=== PATIENT | female | born 1975 | race Caucasian/White ===

== ENCOUNTER 2017-01-07 13:50 | Emergency (ER) | payer SELFPAY ==
--- NOTE | ~2017-01-07 | ER ---
PATIENT'S NAME: BUSHRA CHAND [facility] AGE: 41 Y [address] ROOM: [place] [id number] LOCATION: [facility] ADMIT DATE: 01/07/2017 ER/Outpatient Report DISCHARGE DATE: 01/07/2017 FAMILY PHYSICIAN: Pancho Genao MD ATTENDING PHYSICIAN: Vamsi Burk Time of Arrival: 1350 hours. Time of Evaluation: 1400 hours. CHIEF COMPLAINT: Nausea and vomiting. HISTORY OF PRESENT ILLNESS: This is a 41-year-old female, who presents to the ER, who states she has had nausea and vomiting. The patient states that she has not been feeling well for the past 3 days and she did miss 2 days of work and is needing a work note. She states she feels like she may be running a fever, but she has not checked it. She has had no diarrhea. No cough. No upper respiratory symptoms. The patient denies any other problems at this time. ALLERGIES: NO KNOWN ALLERGIES. MEDICATIONS: Please see medication list nurse's notes. PAST MEDICAL HISTORY: Anxiety and depression. PAST SURGERIES: Surgeries on her ovary and she has had x2. SOCIAL HISTORY: She does smoke 1 pack a day. Denies any drug or alcohol use. REVIEW OF SYSTEMS: A 10-point review of systems was completed, was negative with the exception of those discussed in the HPI. PHYSICAL EXAMINATION: VITAL SIGNS: Height 5 feet and 9 inches stated, weight 60.5 kg taken, blood pressure is 140/88, pulse 89, respirations 16, temperature 97.8 degrees tympanically, and saturations 98% on room air. [place] Coma Score is 15. GENERAL: Alert, calm, well-developed female, in no acute distress. She plays on her video game during examination and she has been drinking sips of pop out PATIENT'S NAME: BUSHRA CHAND [facility] AGE: 41 Y [address] ROOM: [place], [place] [address] LOCATION: [facility] ADMIT DATE: 01/07/2017 ER/Outpatient Report DISCHARGE DATE: 01/07/2017 FAMILY PHYSICIAN: Pancho Genao MD ATTENDING PHYSICIAN: Vamsi Burk of her [employer] cup prior to examination. HEENT: Head: Normocephalic. Eyes: Pupils are equal and reactive to light. She does display moist mucous membranes. LUNGS: Clear to auscultation bilaterally. No wheeze or crackles. Normal respiratory effort. HEART: Regular rate and rhythm. No lifts, thrills, or murmurs. ABDOMEN: Soft. It is mildly tender in the midepigastric region with palpation. She has good bowel sounds throughout. No masses were palpated. EXTREMITIES: No clubbing, cyanosis, or edema. She has full range of motion of all limbs. LABORATORY DATA AND X-RAYS: CBC: White count is 6.3, hemoglobin is 11.7, platelets 244, and ANC is 4.1. CMS: Anion gap is 9.9, otherwise unremarkable. Amylase 53. Lipase 233. H. pylori is negative. IMPRESSION: Nausea and vomiting. ASSESSMENT AND PLAN: We did give the patient an ODT Zofran while here. She had no emesis during her entire stay here. We will dismiss her to home with a prescription for Zofran to use as directed. She needs to do small amounts of fluids frequently, monitor symptoms, and follow up with her primary care physician if needed. The patient understands and agrees with care. ROBI LESTER PA-C FOR MD KINJAL RODRIGUEZ/andrew /[id number] d: 01/07/172026 t: 01/21/17811, OUTPATIENT REPORT
[2017-01-07 14:24] LABS: BASOPHIL % 0.5 %; EOSINOPHIL # 0.1 K/uL (0.0-0.5); HEMATOCRIT 37.4 % (33.0-46.0); HEMOGLOBIN 11.7 g/dL (10.0-15.0); IMMATURE GRANULOCYTE % 0.2 %; LYMPHOCYTE # 1.8 K/uL (0.8-4.0); LYMPHOCYTE % 28.3 %; MCH 27.9 pg (27.0-34.0); MCHC 31.3 gm/dL (32.0-36.5); MCV 89.3 fl (83.0-98.0); MONOCYTE # 0.3 K/uL (0.0-1.0); MONOCYTE % 5.1 %; MPV 9.8 fl (9.4-12.4); NEUTROPHIL # (ANC) 4.1 K/uL (1.8-7.8); NEUTROPHIL % 64.9 %; NRBC % 0 /100WBC (0-0.00); PLATELET COUNT 244 K/uL (150-450); RBC 4.19 M/uL (3.50-5.50); RDW-CV 13.5 % (11.9-14.6); WBC 6.3 K/uL (4.0-11.0)
[2017-01-07 14:45] LABS: ALBUMIN 3.9 gm/dL (3.5-5.0); ALK PHOS 69 IU/L (33-138); ALT 51 IU/L (12-78); ANION GAP 9.9 (10.0-19.0); AST 24 IU/L (10-40); BLOOD UREA NITROGEN 11 mg/dL (6-24); CALCIUM 8.8 mg/dL (8.5-10.5); CHLORIDE 108 mMol/L (96-110); CO2 26 mMol/L (22-32); CREATININE 0.7 mg/dL (0.5-1.1); ESTIMATED GFR (MDRD EQUATION) > 60; POTASSIUM 3.9 mMol/L (3.7-5.1); SODIUM 140 mMol/L (135-145); TOTAL BILIRUBIN 0.3 mg/dL (0.0-1.5); TOTAL PROTEIN 7.5 g/dL (6.0-8.4)
== END 2017-01-07 15:12 | disposition disaster alternative care site (69) ==
LOC: GMED 13:50
PROVIDERS: Physician Assistant Medical
DX: R11.2 Nausea with vomiting, unspecified (principal); F32.9 Major depressive disorder, single episode, unspecified; F41.9 Anxiety disorder, unspecified; F17.210 Nicotine dependence, cigarettes, uncomplicated; Z79.899 Other long term (current) drug therapy; Z98.890 Other specified postprocedural states

== ENCOUNTER 2017-03-18 06:55 | Emergency (ER) | payer SELFPAY ==
--- NOTE | ~2017-03-18 | ER ---
PATIENT'S NAME: BUSHRA CHAND [facility] AGE: 41 Y [address] ROOM: [place] [address] LOCATION: [facility] ADMIT DATE: 03/18/2017 ER/Outpatient Report DISCHARGE DATE: 03/18/2017 FAMILY PHYSICIAN: Jhonatan Rogers MD ATTENDING PHYSICIAN: Vamsi Burk CHIEF COMPLAINT: Left hip pain. HISTORY OF PRESENT ILLNESS: The patient states that she has had left hip pain for the last 36-48 hours. It is very painful with weightbearing but is better with lying down. No single position makes it better. Otherwise, she feels very uncomfortable. She denies any fevers or chills with this, but may have had a fever prior to the weekend. No other significant changes in health otherwise. A few weeks ago, she did have to start riding her bike a lot more for transport. No other acute issues at this time. She denies any significant recent injuries otherwise. PAST MEDICAL HISTORY: Documented on the record and reviewed by me. SOCIAL HISTORY: Documented on the record and reviewed by me. MEDICATIONS: Documented on the record and reviewed by me. ALLERGIES: DOCUMENTED ON THE RECORD AND REVIEWED BY ME. REVIEW OF SYSTEMS: All systems are reviewed and negative except as noted in the HPI. PHYSICAL EXAMINATION: VITAL SIGNS: Blood pressure 127/85, pulse is 94, respiratory rate is 20, temperature is 96.7, SpO2 is 98% on room air. Pain is rated at 9/10. GENERAL: Age-appropriate female. Right lateral decubitus position on the exam table in discomfort and no evidence of pain or distress otherwise. NEUROLOGIC: Awake and alert. GCS is 15. Strength in the left lower extremity is 5/5. No focal deficits. HEENT: Normocephalic, atraumatic. Eyes are PERRL. Oropharynx is clear. Teeth in poor repair. PATIENT'S NAME: BUSHRA CHAND [facility] AGE: 41 Y [address] ROOM: [place] [address] LOCATION: [facility] ADMIT DATE: 03/18/2017 ER/Outpatient Report DISCHARGE DATE: 03/18/2017 FAMILY PHYSICIAN: Jhonatan Rogers MD ATTENDING PHYSICIAN: Vamsi Burk NECK: Supple. Trachea is midline. CHEST: Heart is regular rate and rhythm. No murmurs. LUNGS: Clear to auscultation bilateral. No rhonchi, wheezes, or rales. ABDOMEN: Soft, nontender, and nondistended. No rebound or guarding. BACK: Normal to inspection and palpation. EXTREMITIES: The left hip is notable for tenderness from the ASIS along the iliac crest to the posterior aspect at the SI joint. There is no particular muscular tenderness. The left hip has good passive range of motion with no pain or stiffness appreciated. The extremities otherwise neurovascularly intact. The right lower extremity and upper extremities are unremarkable. SKIN: Warm, dry, intact. No rashes. LABS AND X-RAYS: None. IMPRESSION: Muscle strain. EMERGENCY DEPARTMENT COURSE: The patient was seen and evaluated as above. She was given a shot of morphine and some Zofran. Per her primary request, she was given a work note. She was also given a few [place] to help with the pain. All questions were answered. The patient was discharged with instructions to return if worse. MD CECIL RODRIGUEZ/nadrew /[id number] d: 03/18/17 1223 t: 03/19/17 1011, OUTPATIENT REPORT
== END 2017-03-18 07:35 | disposition disaster alternative care site (69) ==
LOC: GMED 06:55
DX: S76.012A Strain of muscle, fascia and tendon of left hip, initial encounter (principal); F41.9 Anxiety disorder, unspecified; F32.9 Major depressive disorder, single episode, unspecified; Z98.890 Other specified postprocedural states; F17.210 Nicotine dependence, cigarettes, uncomplicated; Z79.899 Other long term (current) drug therapy; X58.XXXA Exposure to other specified factors, initial encounter
CPT/HCPCS: J2270

== ENCOUNTER 2017-03-19 18:25 | Emergency (ER) | payer SELFPAY ==
--- NOTE | ~2017-03-19 | ER ---
PATIENT'S NAME: BUSHRA CHAND [facility] AGE: 41 Y [address] ROOM: [place] [address] LOCATION: [facility] ADMIT DATE: 03/19/2017 ER/Outpatient Report DISCHARGE DATE: 03/19/2017 FAMILY PHYSICIAN: PHYSICIAN, NO ATTENDING PHYSICIAN: David Fuller TIME SEEN: 1840 hours. CHIEF COMPLAINT: Right low back pain. HISTORY OF PRESENT ILLNESS: The patient is a 41-year-old female who was seen yesterday in the emergency room with right hip and low back pain. The patient was prescribed some [place] which she states has not given her any relief. The patient does admit to some family issues. She is in the process of moving and somewhat stressful situation she is currently in. ALLERGIES: NO MEDICINAL ALLERGIES. CURRENT MEDICATIONS: 1. Lorazepam. 2. She has taken some [place] today. MEDICAL HISTORY: Two previous C-sections, oophorectomy, history of anxiety, and depression. SOCIAL HISTORY: Smoker. Half pack a day. Denies alcohol or drug use. She works at [employer]. REVIEW OF SYSTEMS: GENERAL: No fevers or chills. Followed with back pain. HEAD AND EENT. History of poor dentition. RESPIRATORY: Negative. CARDIOVASCULAR: Negative. GASTROINTESTINAL: Denies any weight loss or change in bowel habits. GENITOURINARY: No burning or frequency of urination. MUSCULOSKELETAL: To involve right-sided back pain, worse with movement. NEURO: She denies any change in her bowel habits or urinary incontinence. Denies any numbness or tingling to her lower extremities. OBJECTIVE: PATIENT'S NAME: BUSHRA CHAND [facility] AGE: 41 Y [address] ROOM: [place] [address] LOCATION: [facility] ADMIT DATE: 03/19/2017 ER/Outpatient Report DISCHARGE DATE: 03/19/2017 FAMILY PHYSICIAN: PHYSICIAN, NO ATTENDING PHYSICIAN: David Fuller VITAL SIGNS: Blood pressure 153/90, temperature is 97.9, pulse 92, respirations 16, and O2 saturations 96%. GENERAL APPEARANCE: Appears somewhat depressed, teary eyed. Seemed to walk without a list or any significant limp. HEAD AND EENT: Teeth appear in poor condition. LUNGS: Sounded clear at the bases. BACK: She had some tenderness along the paralumbar muscle groups. Range of motion did not seem to be affected. NEUROLOGIC: She had good patellar reflexes. Sensation in the lower extremities appeared normal. She did have a positive axial load. ASSESSMENT: Right-sided low back pain. PLAN: Toradol 60 IM given here in the emergency room. Naprosyn 500 b.i.d. Instructed the patient on some exercises. Use of ice tonight. Follow up as needed. MARÍA SHERWOOD FOR MD YIMI GARRETT/andrew /[id number] d: 03/20/17 0052 t: 03/20/17 1821, OUTPATIENT REPORT
== END 2017-03-19 18:55 | disposition disaster alternative care site (69) ==
LOC: GMED 18:25
DX: M54.5 Low back pain (principal); F17.210 Nicotine dependence, cigarettes, uncomplicated; Z90.721 Acquired absence of ovaries, unilateral
CPT/HCPCS: J1885

== ENCOUNTER 2017-03-25 11:51 | Emergency (ER) | payer SELFPAY ==
--- NOTE | ~2017-03-25 | ER ---
PATIENT'S NAME: BUSHRA CHAND [facility] AGE: 41 Y [address] ROOM: [place] [address] LOCATION: [facility] ADMIT DATE: 03/25/2017 ER/Outpatient Report DISCHARGE DATE: 03/25/2017 FAMILY PHYSICIAN: Pancho Genao MD ATTENDING PHYSICIAN: Kenneth Meyer TIME OF PATIENT ARRIVAL: 1151 hours. TIME OF PATIENT EVALUATION: 1202 hours. CHIEF COMPLAINT: Cough, exposure to mold. HISTORY OF PRESENT ILLNESS: This is a 41-year-old female, who is well known to us here in the emergency room, who states that she just noticed a mold inside of her closet. She states for the past 3 days, she has had a little bit of a cough that has been dry. She has not been running any fevers. Denies any nasal congestion. No severe shortness of breath. She states that she just wants to make sure she is okay, and she needs a work note as well. ALLERGIES: NO KNOWN ALLERGIES. MEDICATIONS: 1. Lorazepam. 2. Sudafed. PAST MEDICAL HISTORY: Anxiety. PAST SURGICAL HISTORY: She have had 2 C-sections and a left ovary surgery. SOCIAL HISTORY: She smokes half pack a day for 20+ years. Denies drug or alcohol use. REVIEW OF SYSTEMS: A 10-point review of systems was completed and was negative with the exception of those discussed in the HPI. PHYSICAL EXAMINATION: VITAL SIGNS: Height 5 feet 10 inches stated, weight 61.4 kg taken, blood PATIENT'S NAME: BUSHRA CHAND [facility] AGE: 41 Y [address] ROOM: [place] [address] LOCATION: [facility] ADMIT DATE: 03/25/2017 ER/Outpatient Report DISCHARGE DATE: 03/25/2017 FAMILY PHYSICIAN: Pancho Genao MD ATTENDING PHYSICIAN: Kenneth Meyer pressure is 129/87, pulse 86, respirations 18, temperature 97.8 degrees tympanically, and saturation is 97% on room air. [place] Coma Score is 15. GENERAL: Alert, calm, well-developed female, in no acute distress. The patient is listening to her headphones and watching her cellphone through her examination. HEENT: Head: Normocephalic. Eyes: Pupils are equal and reactive to light. Throat: No exudate or erythema. She does display moist mucous membranes. NECK: Supple. No lymphadenopathy. LUNGS: Clear to auscultation bilaterally. No wheezes or crackles. The patient has no cough during examination. HEART: Regular rate and rhythm. EXTREMITIES: No clubbing or cyanosis. She has full range of motion of all limbs. LABORATORY AND X-RAY DATA: None were done. IMPRESSION: Cough with exposure to mold in her closet. ASSESSMENT AND PLAN: I advised the patient to clean the mold with a respirator on with bleach water solution and notify her landlord. She is to monitor her symptoms, continue to push fluids, and follow up with her primary care physician if she does not improve. The patient understands and agrees with care. ROBI LESTER PA-C FOR DO KINJAL CAAL/andrew /[id number] d: 03/25/17 1433 t: 03/31/17 0920, OUTPATIENT REPORT
== END 2017-03-25 12:08 | disposition disaster alternative care site (69) ==
LOC: GMED 11:51
DX: R05 Cough (principal); Z77.120 Contact with and (suspected) exposure to mold (toxic); F17.210 Nicotine dependence, cigarettes, uncomplicated; F41.9 Anxiety disorder, unspecified; Z79.899 Other long term (current) drug therapy

== ENCOUNTER 2017-03-31 14:15 | Emergency (ER) | payer SELFPAY ==
--- NOTE | ~2017-03-31 | ER ---
PATIENT'S NAME: DEEDEE CHAND [facility] AGE: 41 Y [address] ROOM: [place] [address] LOCATION: [facility] ADMIT DATE: 03/31/2017 ER/Outpatient Report DISCHARGE DATE: 03/31/2017 FAMILY PHYSICIAN: PHYSICIAN, NO ATTENDING PHYSICIAN: Kenneth Meyer Time of Arrival: 1415 hours. Time of Evaluation: 1433 hours. CHIEF COMPLAINT: Abdominal pain, diarrhea. HISTORY OF PRESENT ILLNESS: Deedee is a 41-year-old female, her mother brought her to the emergency room with a 24-hour history of diarrhea. She reports she works at [employer], not sure if she pick something up from there. She is having a few chills, no fevers or body aches. The patient reports the diarrhea stopped around midnight last night, it was nonbloody. She is continuing to have a little bit of dizziness and also abdominal pain all over. She denies any vomiting, any recent travel or any new foods. The patient denies any recent illness, colds, no chronic history of abdominal pain. PAST MEDICAL HISTORY: 1. Anxiety. 2. Depression. 3. Postsurgical left ovary removal. 4. Postsurgical x2. 5. Postsurgical tubal ligation. ALLERGIES: NO KNOWN MEDICAL ALLERGIES. CURRENT MEDICATIONS: Lorazepam 1 mg p.o. t.i.d. SOCIAL HISTORY: The patient does smoke half to one pack per day, has done this for the last 20 years. She denies any drug or alcohol use. FAMILY HISTORY: Not obtained. REVIEW OF SYSTEMS: All systems reviewed by myself and negative with the exception of those noted in the HPI. PATIENT'S NAME: DEEDEE CHAND [facility] AGE: 41 Y [address] ROOM: [place] [address] LOCATION: ED ADMIT DATE: 03/31/2017 ER/Outpatient Report DISCHARGE DATE: 03/31/2017 FAMILY PHYSICIAN: PHYSICIAN, NO ATTENDING PHYSICIAN: Kenneth Meyer PHYSICAL EXAMINATION: VITAL SIGNS: Current height 59 inches tall, weight 59.6 kg, temperature 97.2, pulse 70, respirations 20, blood pressure 133/76, and she is 100% on room air. GENERAL: Deedee is alert and oriented x4, cooperative, in no acute distress. SKIN: Overall is a little bit pale, but the staff say this is pretty normal for her. There is no diaphoresis noted. EYES: Sclerae are nonicteric. Pupils equal, round, and reactive to light. EOMs intact. EARS: Ear canals are clear. TMs without redness or effusion. NOSE: Nares are patent, no congestion is noted. MOUTH AND THROAT: Oropharynx is clear. Buccal mucosa is moist. No redness to the posterior pharynx. NECK: Supple. No lymphadenopathy. No thyromegaly appreciated. No nuchal rigidity present. CHEST AND LUNGS: Lung sounds are clear to a little diminished in the bases. No adventitious sounds audible. HEART: Regular rhythm. No murmurs appreciated. ABDOMEN: Generalized tenderness throughout. No rebound is noted. No CVA tenderness elicited. Bowel sounds are hyperactive throughout. No masses are palpable. EXTREMITIES: Lower extremities, no peripheral edema is noted. There are no bug bites and/or sores to her upper or lower extremities. Gait is steady, is able to walk on her own. LABORATORY DATA: WBC 7.7, hemoglobin 10.5, MCV 87.8, and platelets 256. Urinalysis is unremarkable. Sodium 144, potassium 4.4, glucose 90, creatinine 0.7, and BUN is 15. Amylase and lipase within normal limits. H. pylori is negative. Please note, there were no other diagnostic studies performed with this visit. ASSESSMENT: 1. Acute gastroenteritis. 2. Anemia, normocytic. 3. Nausea, improved. PLAN: The patient did receive IV normal saline 1 L bolus along with Zofran 4 mg IV x1. She continued to have a little nausea, so Reglan 10 mg IV x1 was given. The patient was able to walk through the ER to the bathroom and was not having any dizziness or feeling lightheaded. I did review with her her labs and the patient has known she has had a history of some anemia. She currently does not have a primary care physician, no insurance. We did provide her a card to the [facility], in which she is going to follow up with them. She PATIENT'S NAME: DEEDEE CHAND [facility] AGE: 41 Y [address] ROOM: [place] [address] LOCATION: [facility] ADMIT DATE: 03/31/2017 ER/Outpatient Report DISCHARGE DATE: 03/31/2017 FAMILY PHYSICIAN: PHYSICIAN, NO ATTENDING PHYSICIAN: BetsyKenneth Acuna previously was on some iron pills, but quit taking them as they did make her a little sick and also due to the cost. The patient is given a handout on vomiting and diarrhea. A script for Zofran is given, which she will take one every 6 to 8 hours as needed for nausea and vomiting. A work note is provided, no work today or tomorrow, and she will follow up in the next 24 to 48 hours if symptoms worsen in any way. The patient's condition is stable, mother is here to take her home. MARGO GAMBOA APRN FOR KENNETH Acuna DO CLINTON MEYER/andrew /[id number] d: 03/31/17 2250 t: 04/10/17 1415, OUTPATIENT REPORT
[2017-03-31 15:09] LABS: BASOPHIL % 0.4 %; EOSINOPHIL # 0.1 K/uL (0.0-0.5); EOSINOPHIL % 1.7 %; HEMATOCRIT 33.8 % (33.0-46.0); HEMOGLOBIN 10.5 g/dL (10.0-15.0); IMMATURE GRANULOCYTE % 0.3 %; LYMPHOCYTE # 2.2 K/uL (0.8-4.0); LYMPHOCYTE % 28.5 %; MCH 27.3 pg (27.0-34.0); MCHC 31.1 gm/dL (32.0-36.5); MCV 87.8 fl (83.0-98.0); MONOCYTE # 0.5 K/uL (0.0-1.0); MONOCYTE % 6.4 %; MPV 10.3 fl (9.4-12.4); NEUTROPHIL # (ANC) 4.8 K/uL (1.8-7.8); NEUTROPHIL % 62.7 %; NRBC % 0 /100WBC (0-0.00); PLATELET COUNT 256 K/uL (150-450); RBC 3.85 M/uL (3.50-5.50); RDW-CV 14.6 % (11.9-14.6); WBC 7.7 K/uL (4.0-11.0)
[2017-03-31 15:30] LABS: CHLORIDE 114 mMol/L (96-110); POTASSIUM 4.4 mMol/L (3.7-5.1); SODIUM 144 mMol/L (135-145)
[2017-03-31 15:31] LABS: ALBUMIN 3.4 gm/dL (3.5-5.0); ALK PHOS 64 IU/L (33-138); ALT 35 IU/L (12-78); ANION GAP 11.4 (10.0-19.0); AST 18 IU/L (10-40); BLOOD UREA NITROGEN 15 mg/dL (6-24); CALCIUM 8.7 mg/dL (8.5-10.5); CO2 23 mMol/L (22-32); CREATININE 0.7 mg/dL (0.5-1.1); ESTIMATED GFR (MDRD EQUATION) > 60; TOTAL BILIRUBIN 0.2 mg/dL (0.0-1.5); TOTAL PROTEIN 6.8 g/dL (6.0-8.4)
[2017-03-31 16:01] LABS: BILIRUBIN URINE NEGATIVE (NEGATIVE); BLOOD URINE NEGATIVE /UL (NEGATIVE); GLUCOSE URINE NEGATIVE (NEGATIVE); KETONE URINE NEGATIVE (NEGATIVE); LEUKOCYTES URINE NEGATIVE /UL (NEGATIVE); NITRITE URINE NEGATIVE (NEGATIVE); PROTEIN URINE NEGATIVE (NEGATIVE); SPEC GRAVITY URINE 1.015 (1.003-1.035); UROBILINOGEN URINE NORMAL (NORMAL)
[2017-03-31 16:04] LABS: COLOR URINE YELLOW (YELLOW); TURBIDITY URINE CLEAR (CLEAR)
== END 2017-03-31 16:09 | disposition disaster alternative care site (69) ==
LOC: GMED 14:15
PROVIDERS: Nurse Practitioner Family
DX: K52.9 Noninfective gastroenteritis and colitis, unspecified (principal); D64.9 Anemia, unspecified; F41.9 Anxiety disorder, unspecified; F32.9 Major depressive disorder, single episode, unspecified; F17.210 Nicotine dependence, cigarettes, uncomplicated; Z79.899 Other long term (current) drug therapy; Z98.51 Tubal ligation status
CPT/HCPCS: J0500; J2405; J2765; J7030

== ENCOUNTER 2017-05-04 06:31 | Emergency (ER) | payer SELFPAY ==
--- NOTE | ~2017-05-04 | ER ---
PATIENT'S NAME: BUSHRA CHAND [facility] AGE: 41 Y [address] ROOM: [place] [address] LOCATION: [facility] ADMIT DATE: 05/04/2017 ER/Outpatient Report DISCHARGE DATE: FAMILY PHYSICIAN: Physician, Unknown ATTENDING PHYSICIAN: Kenneth Meyer Time of Arrival: 0637 hours. Time of Evaluation: 0645 hours. CHIEF COMPLAINT: Dizziness. HISTORY OF PRESENT ILLNESS: The patient is a 41-year-old female, who presents to the emergency department today with chief complaint of dizziness. She reports this started about 20 minutes prior to arrival when she woke up. She reports that the room is spinning. She reports it is currently 7/10 in severity, but has significantly improved. She denies any fevers, does have some chills, does have some nausea. No vomiting. No diarrhea or constipation. Denies any cough. Has had some nasal congestion and nasal drainage. She reports she has chronic mid abdominal pain. She (always has) this pain, she reports from her nerves. She was called in to work. She is requesting a work note. PAST MEDICAL HISTORY: Anxiety. PAST SURGICAL HISTORY: Two C sections and left ovary. SOCIAL HISTORY: The patient smokes half pack per day for 20 years. Denies any alcohol or illicit drug use. ALLERGIES: NO KNOWN DRUG ALLERGIES. MEDICATIONS: Please see list. PRIMARY CARE DOCTOR: [facility]. REVIEW OF SYSTEMS: All systems are reviewed by myself and negative with the exception of those discussed in HPI and past medical history. PATIENT'S NAME: BUSHRA CHAND [facility] AGE: 41 Y [address] ROOM: [place] [address] LOCATION: [facility] ADMIT DATE: 05/04/2017 ER/Outpatient Report DISCHARGE DATE: FAMILY PHYSICIAN: Physician, Unknown ATTENDING PHYSICIAN: Kenneth Meyer PHYSICAL EXAMINATION: VITAL SIGNS: Weight 57.7 kg. Blood pressure 93/52, pulse 71, respiratory rate 16, temperature 97, oxygen saturation 98% on room air. GENERAL: The patient is a 41-year-old female, who appears stated age, in no acute distress at this time. HEENT: Head: Normocephalic, atraumatic. Pupils are equal, round, and reactive to light and accommodation. Extraocular motions are intact. Nares are patent bilaterally. TMs are clear. Oropharynx is clear. NECK: Supple. There is no nuchal rigidity. CARDIOVASCULAR: Regular rate and rhythm. No murmurs, rubs, or gallops. LUNGS: Clear to auscultation bilaterally. No wheezes, rales, or rhonchi. ABDOMEN: Soft, nontender, and nondistended. No rebound, rigidity, or guarding. NEUROLOGICAL: GCS 15. Alert and oriented x4. Cranial nerves 2 through 12 are grossly intact. Normal [id number]. Normal rapid hand movement. Equal csw strength bilaterally. Downward going toes. No clonus and 2/4 reflexes. SKIN: Warm and dry. LABORATORY DATA AND X-RAYS: None. IMPRESSION: 1. Vertigo. 2. Initial visit. EMERGENCY DEPARTMENT COURSE: The patient was brought back to the examination room. Seen and evaluated by myself. History and physical was performed as described above. The patient's repeat blood pressure was 105/61. The patient's primary concern today is to obtain a work note as she is required by her work to get one if she calls in. She denies any other acute complaints at this time. We will attempt to use some meclizine with some sedation warning. I have discussed with the patient that I would recommend she follows up with her primary care doctor in 2 days for re-evaluation. I have discussed return to care instructions including worsening symptoms or any other concerns to return to the emergency department as soon as possible. The patient agreeable without further questions at this time. DISPOSITION: The patient was discharged home in good condition. PATIENT'S NAME: BUSHRA CHAND [facility] AGE: 41 Y [address] ROOM: [place], [place] [address] LOCATION: ED ADMIT DATE: 05/04/2017 ER/Outpatient Report DISCHARGE DATE: FAMILY PHYSICIAN: Physician, Unknown ATTENDING PHYSICIAN: Kenneth Meyer DO LIZ CAAL/andrew /[id number] d: 05/04/17730 t: 05/07/17 0640, OUTPATIENT REPORT
== END 2017-05-04 06:58 | disposition disaster alternative care site (69) ==
LOC: GMED 06:31
DX: R42 Dizziness and giddiness (principal); F41.9 Anxiety disorder, unspecified; F17.210 Nicotine dependence, cigarettes, uncomplicated; Z90.721 Acquired absence of ovaries, unilateral; Z79.899 Other long term (current) drug therapy